=== PATIENT | female | born 1960 | race Two or more races ===

== ENCOUNTER 2019-09-27 11:39 | Emergency (ER) | payer OTHER ==
[~2019-09-27] VITALS: Ht 160 cm; Wt 59.0 kg
[~2019-09-27 11:39] MED LIST: CEFTIN500 MG PO; HUMALOG100 U/ML; INTESTINEX1 CAP PO; LEVEMIR100 U/ML; SYNTHROID137 MCG; TESSALON PERLE100 MG PO; URIN D.S. TABLE1 TAB PO; ZITHROMAX500 MG PO; ZYRTEC10 MG PO
== END 2019-09-27 13:25 | disposition home or self-care (01) ==
LOC: ER 11:39
DX: S05.02XA Injury of conjunctiva and corneal abrasion without foreign body, left eye, initial encounter (principal); W22.8XXA Striking against or struck by other objects, initial encounter; Y93.89 Activity, other specified; Y92.098 Other place in other non-institutional residence as the place of occurrence of the external cause; Y99.8 Other external cause status

== ENCOUNTER 2021-01-07 15:07 | Emergency (ER) | payer OTHER ==
[~2021-01-07] VITALS: Ht 160 cm; Wt 63.0 kg
[2021-01-07] MEDS ORDERED: HUMALOG100 UNIT/1 (15:27)
[2021-01-07] MEDS ORDERED: LEVEMIR100 UNIT/1 SQ (15:28)
[2021-01-07] MEDS ORDERED: ALPRAZOLAM XR0.5 MG PO (15:29)
== END 2021-01-07 21:00 | disposition home or self-care (01) ==
LOC: ER 15:07
DX: R10.13 Epigastric pain (principal); M54.32 Sciatica, left side

== ENCOUNTER 2022-02-05 16:42 | Emergency (ER) | payer OTHER ==
[~2022-02-05] VITALS: Ht 160 cm; Wt 66.2 kg
[~2022-02-05 16:42] MED LIST changes: +ALPRAZOLAM XR0.5 MG PO; +HUMALOG100 UNIT/1; +LEVEMIR100 UNIT/1 SQ
== END 2022-02-05 18:30 | disposition home or self-care (01) ==
LOC: ER 16:42
DX: S91.342A Puncture wound with foreign body, left foot, initial encounter (principal); W45.0XXA Nail entering through skin, initial encounter; Y93.9 Activity, unspecified; Y92.9 Unspecified place or not applicable

== ENCOUNTER 2022-03-01 19:25 | Emergency (ER) | payer OTHER ==
[~2022-03-01] VITALS: Ht 160 cm; Wt 66.7 kg
== END 2022-03-01 22:18 | disposition home or self-care (01) ==
LOC: ER 19:25
DX: K52.9 Noninfective gastroenteritis and colitis, unspecified (principal); Z72.0 Tobacco use; E11.9 Type 2 diabetes mellitus without complications; Z79.4 Long term (current) use of insulin; Z88.6 Allergy status to analgesic agent

== ENCOUNTER 2023-08-03 15:24 | Emergency (ER) | payer OTHER ==
[~2023-08-03] VITALS: Ht 162.6 cm; Wt 63.5 kg
== END 2023-08-03 21:46 | disposition home or self-care (01) ==
LOC: ER 15:25
PROVIDERS: General Practice
DX: R30.0 Dysuria (principal); Z88.6 Allergy status to analgesic agent